=== PATIENT | male | born 1940 | race Caucasian/White ===

== ENCOUNTER 2018-03-19 20:29 | Emergency (ER) | payer MEDICARE ==
[~2018-03-19] VITALS: Ht 170.2 cm; Wt 60.8 kg
[2018-03-19 20:33] VITALS: BP_SYST 124
[2018-03-19] MEDS ORDERED: DONE10TA44 PO (20:46)
[2018-03-19] MEDS ORDERED: POTA10TA15 PO (20:46)
[2018-03-19] MEDS ORDERED: LORA-258 PO (20:46)
[2018-03-19] MEDS ORDERED: LIP40 PO (20:46)
[2018-03-19] MEDS ORDERED: LISI10TA5 PO (20:46)
[2018-03-19 21:57] VITALS: BP_SYST 124
== END 2018-03-19 21:57 | disposition home or self-care (01) ==
LOC: SED 20:29
DX: S50.02XA Contusion of left elbow, initial encounter (principal); I10 Essential (primary) hypertension; Z79.899 Other long term (current) drug therapy; W01.0XXA Fall on same level from slipping, tripping and stumbling without subsequent striking against object, initial encounter; Y93.89 Activity, other specified; Y92.89 Other specified places as the place of occurrence of the external cause; Y99.8 Other external cause status
CPT/HCPCS: 70450-TC; 99284